=== PATIENT | male | born 1960 | race Caucasian/White ===

== ENCOUNTER 2018-06-03 05:41 | Inpatient (IN) | payer OTHER ==
[2018-05-19 14:08] VITALS: Ht 188 cm; Wt 111.8 kg
[~2018-06-03] VITALS: Ht 188 cm; Wt 111.8 kg
[2018-06-03] VITALS (23 sets, daily range): BP systolic 111–149; BP diastolic 71–88; PULSE 71–95; RESP 12–23
[~2018-06-03 05:41] MED LIST: ATOR40TA68 PO; BUDE3CAP PO; CYCL10TA7 PO; GABA300C16 PO; GEMF600T PO; HYDR-4011 PO; HYOS0.1274 PO; MULTI PO; ONDA4TAB8 PO; PANT40TA3 PO; QUIN40TA31 PO; USTE90DI SQ
[2018-06-03] MEDS ORDERED: CEFAZOLIN 2 GM/50 ML (PMX) 50 ML IVPB SCH (06:00)
[2018-06-03] MEDS ORDERED: LACTATED RINGER'S 1,000 ML IV* SCH (06:00)
[2018-06-03] MEDS ORDERED: CEFAZOLIN 1 GM INJ ONE (07:28)
[2018-06-03] MEDS ORDERED: THROMBIN (BOVINE) 5,000 UNIT VIAL TP ONE ×2 (07:28→12:55)
[2018-06-03] MEDS ORDERED: GELATIN SIZE 100 SPONGE ONE ×2 (07:28→11:39)
[2018-06-03] MEDS ORDERED: BUPIVACAINE 0.5%/EPI (SDV) 30 ML INJ ONE (07:28)
[2018-06-03] MEDS ORDERED: HEPARIN 1000 UNITS/ML 10 ML INJ ONE (07:29)
--- NOTE | 2018-06-03 07:32 | PREAC ---
Date/Time of Note Date/Time of Note DATE: 06/03/18 TIME: 07:30 Anesthesia Eval and Record Evaluation Time Pre-Procedure Interview DATE: 06/03/18 TIME: 07:30 Age 58 Sex male NPO: 8 hrs Preoperative diagnosis Severe degenerative disc disease L4-5, severe bilateral foraminal stenosis with radiculopathy Planned procedure Anterior lumbar interbody fusion with graft, posterior L4-5 instrumented fusion, possible L4-5 decompression Past Medical History Past Medical History: Includes Cardio: HTN, Dyslipidemia GI: Obesity, Other (crohn's disease, irritable bowel syndrome) Surgery & Anesthesia Issues No known issue Meds Anticoagulation: No Beta Terrie within 24 hr: No Reason Beta Terrie not given: Pt. not on B-Terrie Reported Medications Ustekinumab (Stelara) 90 Mg/1 Ml Disp.syrin, 90 MG SQ EVERY 6 WEEKS 05/19/18 Cyclobenzaprine Hcl* (Cyclobenzaprine Hcl*) 10 Mg Tablet, 10 MG PO BID PRN for MUSCLE SPASMS, #60 TAB 05/19/18 Hydrocodone/Acetaminophen ([place] 5-325 Tablet) 1 Each Tablet, 1 EACH PO TID PRN for PAIN, TAB 05/19/18 Hyoscyamine Sulfate* (Levsin*) 0.125 Mg Tablet, 0.125 MG PO Q4H PRN for MUSCLE SPASMS, TAB 05/19/18 Budesonide EC* (Budesonide EC*) 3 Mg Capdr...er, 3 MG PO DAILY, TAB 05/19/18 Pantoprazole* (Protonix*) 40 Mg Tablet.dr, 40 MG PO DAILY, TAB 05/19/18 Multivitamins* (Theragran*) 1 Tab Tab, 1 TAB PO DAILY, TAB 05/19/18 Gabapentin* (Gabapentin*) 300 Mg Capsule, 300 MG PO TID, #90 CAP 05/19/18 Ondansetron Hcl* (Zofran*) 4 Mg Tablet, 4 MG PO TID PRN for NAUSEA AND OR VOMITING, TAB 05/19/18 Quinapril Hcl (Quinapril Hcl) 40 Mg Tablet, 40 MG PO DAILY, #30 TAB 05/19/18 Gemfibrozil* (Lopid*) 600 Mg Tablet, 600 MG PO BID, TAB 05/19/18 Atorvastatin* (Atorvastatin*) 40 Mg Tablet, 40 MG PO QHS, #30 TAB 05/19/18 Current Medications Cefazolin Sodium/ Dextrose 50 ml @ 100 mls/hr PREOP IVPB ; Start 06/03/18 at 06:00; Stop 06/03/18 at 16:00 Lactated Ringer's 1,000 ml @ 0 mls/hr Q0M IV* ; Start 06/03/18 at 06:00; Stop 06/03/18 at 23:00 Meds reviewed: Yes Allergies Coded Allergies: No Known Allergy (Unverified , 05/19/18) Allergies Reviewed: Yes Labs/Studies Labs Reviewed: Reviewed by anesthesiologist Blood Bank Test 06/03/18 05:55 06/03/18 06:19 Blood Product Summary Counts Antibody Screen NEGATIVE Blood Type A POSITIVE test: N/A Pre-procedure Exam Last vitals Vital Signs Date Temp Pulse Resp B/P (MAP) Pulse Ox O2 O2 Flow FiO2 Time Delivery Rate 06/03/18 97.6 71 18 111/75 98 Room Air 06:43 (87) Airway: Adequate mouth opening Mallampati: Mallampati II Teeth: Abnormal (Upper partial denture) Lung: Normal Heart: Normal ASA Physical Status ASA physical status: 3 Emergency: None Planned Anesthetic General/MAC: ETT, A Line Planned Pain Management Parenteral pain med Pre-operative Attestations Prior to commencing anesthesia and surgery, the patient was re-evaluated, there was verification of: *The patient's identity *The results of appropriate recent lab work and preoperative vital signs *The above evaluation not changing prior to induction *Anesthetic plan, risk benefits, alternative and complications discussed with patient/family; questions answered; patient/family understands, accepts and wishes to proceed. JORDEN WU MD Jun 03, 2018 07:32
--- NOTE | 2018-06-03 07:33 | HPN ---
Date/Time of Note Date/Time of Note DATE: 06/03/18 TIME: 07:33 Interval H&P Admission Note Pt. seen H&P reviewed: No system changes VINCENT BALDERAS MD Jun 03, 2018 07:33
[2018-06-03] MEDS ORDERED: LIDOCAINE 2% (SDV) 5 ML INJ ONE (07:52)
[2018-06-03] MEDS ORDERED: GLYCOPYRROLATE 0.4 MG INJ ONE ×3 (07:52→08:44)
[2018-06-03] MEDS ORDERED: SUCCINYLCHOLINE CHLORIDE 100 MG/5 ML SYG IV ONE (07:52)
[2018-06-03] MEDS ORDERED: NEOSTIGMINE 3 MG/3 ML SYRINGE ONE ×2 (07:52→08:44)
[2018-06-03] MEDS ORDERED: MEPERIDINE 100 MG INJ ONE (07:52)
[2018-06-03] MEDS ORDERED: ROCURONIUM 50 MG INJ ONE ×2 (07:52→08:44)
[2018-06-03] MEDS ORDERED: PROPOFOL 20 ML ONE (07:52)
[2018-06-03] MEDS ORDERED: ATROPINE 1 MG/10 ML SYRINGE ONE (09:19)
[2018-06-03] MEDS ORDERED: EPHEDrine 50 MG INJ ONE (10:24)
--- NOTE | 2018-06-03 14:47 | OPR ---
Date/Time of Note Date/Time of Note DATE: 06/03/18 TIME: 14:41 Operative Report Free Text/Dictation DATE OF OPERATION: 06/03/2018 PREOPERATIVE DIAGNOSES: 1. L4-5 severe degenerative disk disease with spinal stenosis and radiculopathy 2. Obesity (BMI 31.6 kg/m2) POSTOPERATIVE DIAGNOSES: 1. L4-5 severe degenerative disk disease with spinal stenosis and radiculopathy 2. Obesity (BMI 31.6 kg/m2) OPERATION PERFORMED: 1. Anterior lumbar interbody fusion L4-5 2. Placement of anterior interbody device L4-5 3. Placement of posterior spinal segmental instrumentation L4-5 4. Posterior spinal fusion L4-5 5.Bilateral L4-5 laminectomy, medial facetectomy and foraminotomy 6. Interpretation of neuromonitoring SURGEON: Vincent Balderas MD Vascular surgeon: Bird Euceda MD ANESTHESIA: General endotracheal ESTIMATED BLOOD LOSS: 250 cc SURGICAL INDICATION: The patient is a 58 year-old male who presents with an increasing history of back and leg pain. The patient was found to have severe degenerative disk disease at L4-5 with associated stenosis. The patient had failed conservative treatments. Risks, benefits and alternatives to an anterior and posterior spinal fusion with instrumentation and decompression were explained to the patient including but not exclusive of bleeding, infection, visceral injury, nerve injury, nonunion, instrumentation failure, lack of symptom relief, myocardial infarction, stroke, and pulmonary embolism, and they wished to proceed. DESCRIPTION OF TECHNIQUE: The patient was identified in the preoperative area and taken to the operating room. Rapid induction of general endotracheal anesthesia was performed. Patient was given 2 grams of IV ancef for prophylaxis. The patient was positioned in the supine position on the operative table. All bony prominences were well padded. The patient's abdomen and left flank were prepped and draped in the usual sterile fashion. An oblique skin incision was made across the L4-L5 level by our vascular surgeon Dr. Euceda. Please note that given the patient's obesity with BMI of 30 additional time (1 hour) was taken for exposure and placement of the anterior interbody as well as posterior decompression and instrumentation. After the exposure was completed, I performed a L4-L5 diskectomy. The disc was incised using a sharp 15 mm blade. I then used a smith elevator to loosen the disk material from the superior and inferior endplates. I then used a rongeur to remove the disc material and a series of curved and straight curettes to evacuate the disc space. I also used a series of pituitaries and kerrisons to ensure appropriate end plate preparation. Attention was placed to ensure removal of disk material to bleeding endplates without violation of the endplate. I then used the trial rasps to prepare and size the disc space and was able to place a 11 mm trial allograft FRA spacer with 8 degrees of lordosis. To ensure appropriate sizing of the inplant, I checked for fit and placement under C arm control and I felt the 8 degree lordotic 8 mm cage gained good lordosis and worship of disc height and was an appropriate fit. I then inserted the 11mm RFA cage after the trail. This cage was filled with a small BMP and morselized bone allograft. A butress screw with a washer was then placed in the L4 vertebral body using the guide under fluoroscopy . Additional morselized allograft was placed around and anterior to the cage in the disc space. 2mL of tisseal was also used prior to placement of the cage in order to reduce the risk of BMP radiculitis. The wound was then irrigated. X-rays were taken to check for instruments. The wound was then closed by our vascular access surgeon in standard technique. The posterior rectus sheath and anterior rectus sheath were both repaired. Sterile dressing was then placed. Attention was then turned toward the decompression and instrumented fusion procedure from L4-L5. At this point, the patient was flipped to the prone position with all bony prominences well-padded on a Omari table. We ensured that the antibiotics were appropriately redosed. The lumbar spine was then prepped and draped in sterile fashion. A timeout was once again performed. Using a spinal needle and intraoperative fluoroscopy, the L4-5 level was clearly identified. The skin was injected using half percent Marcaine with epinephrine. Longitudinal midline incision was then created using a 10 blade. Further dissection through soft tissue was performed using electrocautery down to the spinous processes bilaterally. Dissection was taken down the bilateral lamina and over the facet joint capsule. A self-retaining retractor was applied. Again, intraoperative fluoroscopy confirmed the level. A rongeur was used to remove a portion of the L4 and L5 spinous processes and the interspinous ligament. We identified the interlaminar window. The microscope was brought into use for microdissection. The high-speed bur was used to thin the L4 lamina and a portion of the medial L4-5 facet bilaterally. . Kerrison rongeurs were then used to resect a the lamina, and a portion of the medial facet and the bone overlying the foramen bilaterally. Ligamentum flavum was also resected using the Kerrison rongeurs. Care was taken to protect the thecal sac throughout the decompressive procedure. Palpation with a ball-tip probe did not reveal any further stenosis in the central, subarticular, or foraminal areas. The bilateral L5 and L4 pedicles were palpated using a ella to ensure a pedicle to pedicle decompression. The exiting L4 nerve root and traversing L5 nerve roots were both directly visualized and noted to be decompressed. The cephalad and caudad extent of the decompression were also confirmed using ball-tip probes and intraoperative fluoroscopy. We then focused on placement of posterior spinal segmental instrumentation from L4-5. Using intraoperative fluoroscopy, the pedicles were identified at each level. Care was taken to alter the fluoroscopic view to have a true AP and lateral at each level. Jamshidi needles were then passed down to the lateral aspect of the pedicles through stab incisions. The Jamshidi needles were malleted into the pedicles. These were also performed under EMG guidance. Care was taken to ensure that the needles did not pass the medial wall of the pedicle on the AP view prior to checking that the needle was past the posterior wall of the vertebral body. The needles were then malleted further into the vertebral bodies themselves. Guidewires were passed through the needles and the needles were removed. Taps were applied over the guidewires. Screws were then placed bilaterally into the vertebral bodies. AP and lateral views confirmed appropriate placement of the instrumentation. Attention was turned toward the posterior spinal fusion from L4-5. Rods were selected of the appropriate length and placed into the screw heads. End caps were applied and final tightening was performed using a xrdfuz-zbmiykx-ygepyw wrench. The exposed facet joints were decorticated using a bur. A small remaining amount of allograft was placed into the facet joints to facilitate the posterior fusion. The wound was irrigated copiously using normal saline. The fascia was then closed using 1 Vicryl in interrupted fashion. Subcutaneous tissue was closed using 2-0 Vicryl in interrupted fashion. [facility]was also placed in the wound. Skin was closed using a running 4-0 Monocryl stitch. The wounds were dressed using Dermabond, sterile gauze and Tegaderm. The patient was returned to the supine position. The patient was extubated immediately postoperatively and taken to the recovery room in stable condition. Patient tolerated the procedure well and left the operating room in stable condition. Implants used: 1.Depuy/ Synthes FRA 11mm height/ 8 degree lordotic cage at L4-5 2. Extra-Small BMP with 30 cc of cancellous bone chips 3. 6.5/25 mm buttress screws with washer 1 4. NuVasive 6.545 mm screws at L4 x2 6.NuVasive 6.545 mm screws at L5 2 7. 45 mm Luciano x 2 Procedure Date: Jun 03, 2018 Preoperative Diagnosis 1. L4-5 severe degenerative disk disease with spinal stenosis and radiculopathy 2. Obesity (BMI 31.6 kg/m2) Postoperative Diagnosis 1. L4-5 severe degenerative disk disease with spinal stenosis and radiculopathy 2. Obesity (BMI 31.6 kg/m2) Operation/Procedure Performed 1. Anterior lumbar interbody fusion L4-5 2. Placement of anterior interbody device L4-5 3. Placement of posterior spinal segmental instrumentation L4-5 4. Posterior spinal fusion L4-5 5.Bilateral L4-5 laminectomy, medial facetectomy and foraminotomy 6. Interpretation of neuromonitoring Surgeon see signature line Peanut Separator Bird Euceda MD Anesthesia Type: general Estimated Blood Loss: 250 - 300 ml's Transfusion none Specimen none Grafts/Implants Implants used: 1.Depuy/ Synthes FRA 11mm height/ 8 degree lordotic cage at L4-5 2. Extra-Small BMP with 30 cc of cancellous bone chips 3. 6.5/25 mm buttress screws with washer 1 4. NuVasive 6.545 mm screws at L4 x2 6.NuVasive 6.545 mm screws at L5 2 7. 45 mm Luciano x 2 Complications none Pt Condition Post Procedure: stable Disposition: PACU Procedure Description DESCRIPTION OF TECHNIQUE: The patient was identified in the preoperative area and taken to the operating room. Rapid induction of general endotracheal anesthesia was performed. Patient was given 2 grams of IV ancef for prophylaxis. The patient was positioned in the supine position on the operative table. All bony prominences were well padded. The patient's abdomen and left flank were prepped and draped in the usual sterile fashion. An oblique skin incision was made across the L4-L5 level by our vascular surgeon Dr. Euceda. Please note that given the patient's obesity with BMI of 30 additional time (1 hour) was taken for exposure and placement of the anterior interbody as well as posterior decompression and instrumentation. After the exposure was completed, I performed a L4-L5 diskectomy. The disc was incised using a sharp 15 mm blade. I then used a smith elevator to loosen the disk material from the superior and inferior endplates. I then used a rongeur to remove the disc material and a series of curved and straight curettes to evacuate the disc space. I also used a series of pituitaries and kerrisons to ensure appropriate end plate preparation. Attention was placed to ensure removal of disk material to bleeding endplates without violation of the endplate. I then used the trial rasps to prepare and size the disc space and was able to place a 11 mm trial allograft FRA spacer with 8 degrees of lordosis. To ensure appropriate sizing of the inplant, I checked for fit and placement under C arm control and I felt the 8 degree lordotic 8 mm cage gained good lordosis and worship of disc height and was an appropriate fit. I then inserted the 11mm RFA cage after the trail. This cage was filled with a small BMP and morselized bone allograft. A butress screw with a washer was then placed in the L4 vertebral body using the guide under fluoroscopy . Additional morselized allograft was placed around and anterior to the cage in the disc space. 2mL of tisseal was also used prior to placement of the cage in order to reduce the risk of BMP radiculitis. The wound was then irrigated. X-rays were taken to check for instruments. The wound was then closed by our vascular access surgeon in standard technique. The posterior rectus sheath and anterior rectus sheath were both repaired. Sterile dressing was then placed. Attention was then turned toward the decompression and instrumented fusion procedure from L4-L5. At this point, the patient was flipped to the prone position with all bony prominences well-padded on a Omari table. We ensured that the antibiotics were appropriately redosed. The lumbar spine was then prepped and draped in sterile fashion. A timeout was once again performed. Using a spinal needle and intraoperative fluoroscopy, the L4-5 level was clearly identified. The skin was injected using half percent Marcaine with epinephrine. Longitudinal midline incision was then created using a 10 blade. Further dissection through soft tissue was performed using electrocautery down to the spinous processes bilaterally. Dissection was taken down the bilateral lamina and over the facet joint capsule. A self-retaining retractor was applied. Again, intraoperative fluoroscopy confirmed the level. A rongeur was used to remove a portion of the L4 and L5 spinous processes and the interspinous ligament. We identified the interlaminar window. The microscope was brought into use for microdissection. The high-speed bur was used to thin the L4 lamina and a portion of the medial L4-5 facet bilaterally. . Kerrison rongeurs were then used to resect a the lamina, and a portion of the medial facet and the bone overlying the foramen bilaterally. Ligamentum flavum was also resected using the Kerrison rongeurs. Care was taken to protect the thecal sac throughout the decompressive procedure. Palpation with a ball-tip probe did not reveal any further stenosis in the central, subarticular, or foraminal areas. The bilateral L5 and L4 pedicles were palpated using a ella to ensure a pedicle to pedicle decompress ion. The exiting L4 nerve root and traversing L5 nerve roots were both directly visualized and noted to be decompressed. The cephalad and caudad extent of the decompression were also confirmed using ball-tip probes and intraoperative fluoroscopy. We then focused on placement of posterior spinal segmental instrumentation from L4-5. Using intraoperative fluoroscopy, the pedicles were identified at each level. Care was taken to alter the fluoroscopic view to have a true AP and lateral at each level. Jamshidi needles were then passed down to the lateral aspect of the pedicles through stab incisions. The Jamshidi needles were malleted into the pedicles. These were also performed under EMG guidance. Care was taken to ensure that the needles did not pass the medial wall of the pedicle on the AP view prior to checking that the needle was past the posterior wall of the vertebral body. The needles were then malleted further into the vertebral bodies themselves. Guidewires were passed through the needles and the needles were removed. Taps were applied over the guidewires. Screws were then placed bilaterally into the vertebral bodies. AP and lateral views confirmed appropriate placement of the instrumentation. Attention was turned toward the posterior spinal fusion from L4-5. Rods were selected of the appropriate length and placed into the screw heads. End caps were applied and final tightening was performed using a ormumi-qgcpxra-daxwem wrench. The exposed facet joints were decorticated using a bur. A small remaining amount of allograft was placed into the facet joints to facilitate the posterior fusion. The wound was irrigated copiously using normal saline. The fascia was then closed using 1 Vicryl in interrupted fashion. Subcutaneous tissue was closed using 2-0 Vicryl in interrupted fashion. A drain (medium Hemovac)was also placed in the wound. Skin was closed using a running 4-0 Monocryl stitch. The wounds were dressed using Dermabond, sterile gauze and Tegaderm. The patient was returned to the supine position. The patient was extubated immediately postoperatively and taken to the recovery room in stable condition. Patient tolerated the procedure well and left the operating room in stable condition. Implants used: 1.Depuy/ Synthes FRA 11mm height/ 8 degree lordotic cage at L4-5 2. Extra-Small BMP with 30 cc of cancellous bone chips 3. 6.5/25 mm buttress screws with washer 1 4. NuVasive 6.545 mm screws at L4 x2 6.NuVasive 6.545 mm screws at L5 2 7. 45 mm Luciano x 2 VINCENT BALDERAS MD Jun 03, 2018 14:47
[2018-06-03] MEDS ORDERED: ONDANSETRON 4 MG INJ ONE (14:56)
[2018-06-03] MEDS ORDERED: METOCLOPRAMIDE 10 MG INJ ONE (14:56)
[2018-06-03] MEDS ORDERED: NACL 0.9% 3 ML SYG IV SCH (15:00)
[2018-06-03] MEDS ORDERED: NALOXONE (0.4 MG/ML) INJ IV PRN (15:00)
[2018-06-03] MEDS ORDERED: HYDROCODONE/APAP (5/325) TAB PO PRN ×2 (15:00)
[2018-06-03] MEDS ORDERED: ACETAMINOPHEN 325 MG TAB PO PRN (15:00)
[2018-06-03] MEDS ORDERED: HYDROmorphONE 1 MG/5 ML IV SYRINGE IV ONE (15:20)
[2018-06-03] MEDS ORDERED: FENTAnyl 50 MCG/ML VIAL ONE (15:20)
[2018-06-03] MEDS: HYDROmorphONE 0.2 MG/ML PCA IV SCH ×2 (15:28→21:24)
[2018-06-03] MEDS ORDERED: hydrALAzine 20 MG INJ IV PRN (15:30)
[2018-06-03] MEDS ORDERED: MEPERIDINE 25 MG INJ IV PRN (15:30)
[2018-06-03] MEDS ORDERED: LABETALOL HCL 20MG INJ IV PRN (15:30)
[2018-06-03] MEDS ORDERED: EPHEDrine SULFATE 50 MG/5 ML SYG IV PRN (15:30)
[2018-06-03] MEDS ORDERED: HYDROmorphONE 1 MG/5 ML IV SYRINGE IV PRN ×3 (15:30)
[2018-06-03] MEDS ORDERED: DIPHENHYDRAMINE 50 MG INJ IV PRN (15:30)
[2018-06-03] MEDS ORDERED: OXYCODONE/ACETAMINOPHEN (5/325) TAB PO PRN ×2 (15:30)
[2018-06-03] MEDS ORDERED: MIDAZOLAM 1 MG/ML 2 ML INJ IV PRN (15:30)
[2018-06-03] MEDS ORDERED: ONDANSETRON 4 MG INJ IV PRN (15:30)
[2018-06-03] MEDS ORDERED: FENTAnyl 50 MCG/ML VIAL IV PRN ×3 (15:30)
[2018-06-03] MEDS ORDERED: METOCLOPRAMIDE 10 MG INJ IV PRN (15:30)
--- NOTE | 2018-06-03 16:36 | PAC ---
Date/Time of Note Date/Time of Note DATE: 06/03/18 TIME: 16:35 Post-Anesthesia Notes Post-Anesthesia Note Last documented vital signs Vital Signs Date Temp Pulse Resp B/P (MAP) Pulse Ox O2 O2 Flow FiO2 Time Delivery Rate 06/03/18 16 16:01 06/03/18 Simple 10.0 15:50 Mask 06/03/18 88 125/80 100 15:39 (95) 06/03/18 98.9 15:19 Activity: WNL Respiratory function: WNL Cardiovascular function: WNL Mental status: Baseline Pain reasonably controlled: Yes Hydration appropriate: Yes Nausea/Vomiting absent: Yes Comments BT: 98.6 JORDEN WU MD Jun 03, 2018 16:36
[2018-06-03] MEDS: DEXTROSE 5%-0.45% NACL 1,000 ML IV SCH (17:49)
[2018-06-03] MEDS: CEFAZOLIN 1 GM/50 ML (PMX) 50 ML IVPB SCH ×2 (17:49→23:33)
--- NOTE | 2018-06-03 19:29 | CONS ---
DATE OF ADMISSION: 06/03/2018 DATE OF CONSULTATION: 06/03/2018 TYPE OF CONSULTATION: Postop medical. Thank you very much for allowing me to evaluate this 58-year-old male who just underwent lumbar back surgery. HISTORICAL EVENTS: As you well know, this patient suffered an injury while at work in 10/2017. Rose use of the subsequent evidence of back pain, he was evaluated and you detected evidence of bilateral foraminal stenosis and subarticular stenosis involving L4 to L5. He did undergo epidural injections and because of no significant relief subsequent to the same, elected to proceed with surgery. In rec overy room, he is comfortable without cough, wheezing, shortness of breath, nausea, vomiting, abdomin al or chest pain. PAST MEDICAL HISTORY: As obtained from the medical record reveals hyperlipidemia, hypertension, dysp epsia without history of coronary disease or diabetes, colitis. MEDICATIONS: Prior to admission include: 1. Atorvastatin 40. 2. Budesonide 3 mg per day. 3. Gabapentin 300 mg per day. 4. Lopid 600 mg per day. 5. [place] 5/325 q.6 p.r.n. 6. Multi-Lance. 7. Levsin as needed. 8. Protonix 40. 9. Quinapril. 10. Stelara 90 mg per day. ALLERGIES: NONE. FAMILY HISTORY: Unremarkable. PHYSICAL EXAMINATION: VITAL SIGNS: BP 128/78, pulse 72, respirations were 18. He was afebrile. HEENT: Eyes: Extraocular muscles were full. Nose, mouth and throat were normal. NECK: Supple. There was no jugular venous distention, thyroid enlargement or adenopathy. LUNGS: Clear. HEART: Rhythm regular. No murmur. No third or fourth sound. ABDOMEN: Nontender. Liver and spleen were not palpable. No mass or tenderness was noted. EXTREMITIES: No edema. Calves were nontender. NEUROLOGIC: No lateralizing motor weakness. IMPRESSION: 1. Stable postop lumbar back surgery. 2. History of hypertension. We will continue blood pressure meds. 3. History of hyperlipidemia. We will continue statin and triglyceride-lowering therapy. 4. History of colitis. We will continue budesonide. 5. We will evaluate daily for signs and symptoms of thromboembolic disease. Dictated By: FAINA TURPIN/RAMON Conf#: [id number] DID#: [id number] CC: VINCENT BALDERAS MD;*End*
--- NOTE | 2018-06-03 20:35 | OPR ---
DATE OF OPERATION: PREOPERATIVE DIAGNOSIS: Degenerative disk disease, lumbosacral spine. POSTOPERATIVE DIAGNOSIS: Degenerative disk disease, lumbosacral spine. PROCEDURE: Anterior retroperitoneal exposure interbody fusion at L4 to L5. SURGEON: Eduin Polk MD TEST BORER HELPER: Vincent Balderas MD ESTIMATED BLOOD LOSS: 50 mL. ANESTHESIA: General. INFORMED CONSENT: Risks, benefits, complications, alternative therapies, high-risk nature of the ope ration were fully explained to the patient and the family. Consent was obtained. Risks and benefits that were explained to the patient included but not limited to bleeding, infection, damage to bowel, damage to ureter, wound infection, wound dehiscence, DVT, PE, loss of limb, loss of life, high-risk nature of the operation were fully explained to the patient and the family. All questions were answe red. OPERATIVE TECHNIQUE: I made a 10 cm incision in the left lower quadrant below the umbilicus in a hor izontal fashion. Incision was taken down to the subcutaneous tissue which was then opened using elec trocautery. Left anterior rectus sheath was opened in the direction of the wound. Posterior rectus sheath was incised superiorly about 3 cm. Bookwalter retractor was placed retracting the bowel charisma nts to the right, left rectus muscle to the left. I dissected the left common iliac artery and vein, external iliac artery and vein. I ligated left iliolumbar veins using 2-0 silk sutures and titanium clips and I also ligated the lowest segmental vessels on the left side using titanium clips. Exposu re for L4 to L5 was obtained by retracting the left common iliac artery and vein, external iliac giselle ry and vein, vena cava and aorta to the right. We proceeded with diskectomy and placement of the new cage. Please refer to Dr. Balderas's dictation for the details of that operation. After all x-ray s were satisfactorily read by Dr. Balderas, needle counts and sponge count was correct. The wound w as irrigated using antibiotic solution. Posterior rectus sheath was closed using 0 Vicryl suture in running fashion. Anterior rectus sheath was closed using #1 Vicryl suture in running fashion with in terrupted sutures in the middle. The wound was irrigated again and closed in 2 layers of 2-0 Vicryl suture for the subcutaneous and Steri-Strips for the skin. The patient tolerated procedure well. Dictated By: EDUIN POLK MD FM/NTS Conf#: [id number] DID#: [id number] CC: VINCENT BALDERAS MD; FAINA CALI MD;*End*
[2018-06-03] MEDS: GEMFIBROZIL 600 MG TAB PO SCH (21:00)
[2018-06-03] MEDS: ACETAMINOPHEN 1000MG/100ML IV 100 ML IVPB SCH (21:07)
[2018-06-03] MEDS: ATORVASTATIN 40 MG TAB PO SCH (21:09)
[2018-06-03] MEDS: METHOCARBAMOL 500 MG TAB PO SCH (21:09)
[2018-06-04 00:53] VITALS: BP 141/78; PULSE 92; RESP 20
[2018-06-04] MEDS: DEXTROSE 5%-0.45% NACL 1,000 ML IV SCH ×3 (04:10→20:47)
[2018-06-04] MEDS: METHOCARBAMOL 500 MG TAB PO SCH ×3 (04:11→22:55)
[2018-06-04] MEDS: HYDROmorphONE 0.2 MG/ML PCA IV SCH ×2 (04:20→11:10)
[2018-06-04] MEDS: ACETAMINOPHEN 1000MG/100ML IV 100 ML IVPB SCH ×2 (05:26→14:41)
[2018-06-04] MEDS: ONDANSETRON 4 MG INJ IV PRN ×2 (05:26→14:32)
[2018-06-04] MEDS: CEFAZOLIN 1 GM/50 ML (PMX) 50 ML IVPB SCH ×2 (05:41→15:08)
[2018-06-04 07:31] VITALS: BP 162/91; PULSE 94; RESP 18
[2018-06-04] MEDS: DOCUSATE SODIUM 100 MG CAP PO SCH ×2 (08:53→20:42)
[2018-06-04] MEDS: BENAZEPRIL 20 MG TAB PO SCH (08:56)
[2018-06-04] MEDS: PANTOPRAZOLE (EC) 40 MG TAB PO SCH (08:56)
--- NOTE | 2018-06-04 10:16 | CONS ---
Consultation Date/Type/Reason Admit Date/Time Jun 03, 2018 at 05:41 Initial Consult Date Date/Time of Note DATE: 06/04/18 TIME: 10:11 24 HR Interval Summary Free Text/Dictation S: 58 yo M POD#1 s/p L4-5 ALIF w/ post decompression and instrumented fusion. No acute events over night. Pain controlled w/ CLINICAL PROJECT COORDINATOR. Tolerating clear diet. O: Vital Signs Date Temp Pulse Resp B/P (MAP) Pulse Ox O2 O2 Flow FiO2 Time Delivery Rate 06/04/18 98.4 94 18 162/91 97 07:31 (114) 06/04/18 98.4 06:07 06/04/18 18 05:38 06/04/18 98.8 05:26 Drain Output: 30 mL Gen: AAOx3, NAD Abdomen: mild distension, No TTP Spine: 4/5 B/L HF/KE/TA/GS/EHL, +SILT L3-S1, dressings C/D/I A/P:58 yo M POD#1 s/p L4-5 ALIF w/ post decompression and instrumented fusion. 1. Start regular diet once passing gas 2. D/C CLINICAL PROJECT COORDINATOR tomorrow 3. D/C [place] tomorrow once cleared by PT 4. appreciate med recs Exam/Review of Systems Exam Vitals Vital Signs Date Temp Pulse Resp B/P (MAP) Pulse Ox O2 O2 Flow FiO2 Time Delivery Rate 06/04/18 98.4 94 18 162/91 97 07:31 (114) 06/04/18 Nasal 00:53 Cannula 06/03/18 3.0 21:34 Intake and Output 06/03/18 06/03/18 06/04/18 1515:00 23:00 07:00 IntakeIntake Total 3300 ml 2350 ml OutputOutput Total 200 ml 752 ml 1120 ml BalanceBalance -200 ml 2548 ml 1230 ml Results Result Diagram: 06/04/18 0435 06/04/18 0435 Results 24hrs Laboratory Tests Test 06/04/18 04:35 06/04/18 06:43 Hemoglobin 13.5 L Hematocrit 40.1 L Sodium Level 136 Potassium Level 3.3 L Chloride Level 95 L Carbon Dioxide Level 29 Anion Gap 12 Blood Urea Nitrogen 6 L Creatinine 0.61 Est Glomerular Filtrat Rate mL/min > 60 Glucose Level 149 Calcium Level 9.0 Lab Scanned Report REFERENCE LAB Medications Medication Current Medications Dextrose/Sodium Chloride 1,000 ml @ 100 mls/hr Q10H IV Last administered on 06/04/18at 04:10; Admin Dose 100 MLS/HR; Start 06/03/18 at 14:47 Acetaminophen/ Hydrocodone Bitart ([place] (5/325)) 1 tab Q4H PRN PO .PAIN 1-5; Start 06/03/18 at 15:00 Acetaminophen/ Hydrocodone Bitart ([place] (5/325)) 2 tab Q4H PRN PO .PAIN 6-10; Start 06/03/18 at 15:00 Cefazolin Sodium 50 ml @ 100 mls/hr Q6 IVPB Last administered on 06/04/18at 05:41; Admin Dose 100 MLS/HR; Start 06/03/18 at 18:00; Stop 06/04/18 at 12:29 Prochlorperazine (Compazine) 10 mg Q4H PRN PO NAUSEA/VOMITING; Start 06/03/18 at 15:00 Ondansetron HCl (Zofran Inj) 4 mg Q6H PRN IV NAUSEA/VOMITING Last administered on 06/04/18at 05:26; Admin Dose 4 MG; Start 06/03/18 at 15:00 Al Hydrox/Mg Hydrox/Simethicone (Mag-Al Plus) 15 ml Q4H PRN PO .CONSTIPATION; Start 06/03/18 at 15:00 Docusate Sodium (Colace) 100 mg BID PO Last administered on 06/04/18at 08:53; Admin Dose 100 MG; Start 06/04/18 at 09:00 Acetaminophen (Tylenol Tab) 650 mg Q4H PRN PO TEMP GREATER THAN 101F OR LORENZ; Start 06/03/18 at 15:00 IV Flush (NS 3 ml) 3 ml PER PROTOCOL IV ; Start 06/03/18 at 15:00 Hydromorphone HCl (Dilaudid CLINICAL PROJECT COORDINATOR) continuous dose: 0.2 dem... Q4PCA IV Last administered on 06/04/18at 04:20; Admin Dose 6 MG; Start 06/03/18 at 15:00 Naloxone HCl (Narcan) 0.2 mg Q2M PRN IV RR 8 BREATHS/MIN OR LESS; Start 05/07 11/24 at 15:00 Atorvastatin Calcium (Lipitor) 40 mg QHS PO Last administered on 06/03/18at 21:09; Admin Dose 40 MG; Start 06/03/18 at 21:00 Budesonide (Entocort Ec) 3 mg DAILY PO ; Start 06/04/18 at 09:00 Gemfibrozil (Lopid) 600 mg BID PO ; Start 06/03/18 at 21:00 Pantoprazole (Protonix Tab) 40 mg DAILY PO Last administered on 06/04/18at 08:56; Admin Dose 40 MG; Start 06/04/18 at 09:00 Benazepril HCl (Lotensin) 40 mg DAILY PO Last administered on 06/04/18at 08:56; Admin Dose 40 MG; Start 06/04/18 at 09:00 Methocarbamol (Robaxin) 500 mg Q8 PO Last administered on 06/04/18at 04:11; Admin Dose 500 MG; Start 06/03/18 at 22:00 Acetaminophen 100 ml @ 400 mls/hr Q8 IVPB Last administered on 06/04/18at 05:26; Admin Dose 400 MLS/HR; Start 06/03/18 at 22:00; Stop 06/04/18 at 14:14 VINCENT BALDERAS MD Jun 04, 2018 10:16
[2018-06-04 14:23] VITALS: BP 165/89; PULSE 101; RESP 18
--- NOTE | 2018-06-04 14:36 | CONS ---
Consult Date/Type/Reason Admit Date/Time Jun 03, 2018 at 05:41 Initial Consult Date 06/03/2018 Type of Consultation: Internal Medicine Reason for Consultation Management of HTN, HLD, GERD, colitis for periop patient Requesting Provider: VINCENT BALDERAS MD Date/Time of Note DATE: 06/04/18 TIME: 14:31 Subjective Patient has not bee passing gas. Endorses moderate pain but trying to avoid using SENIOR FACILITIES MANAGER as it caused nausea. He has had N/V. Has pain at surgical sites. Denies f/c/d/c/cp/sob/cough. Objective Vitals Vital Signs Date Temp Pulse Resp B/P (MAP) Pulse Ox O2 O2 Flow FiO2 Time Delivery Rate 06/04/18 98.4 101 18 165/89 92 14:23 (114) 06/04/18 Nasal 3.0 08:00 Cannula Intake and Output 06/03/18 06/03/18 06/04/18 1515:00 23:00 07:00 IntakeIntake Total 3300 ml 2350 ml OutputOutput Total 200 ml 752 ml 1120 ml BalanceBalance -200 ml 2548 ml 1230 ml Exam Gen-nad HEENT-op clear,MMM CV-RRR,nml s1/s2. No m/r/g Abd-soft,ND, +BS, tender around surgical site to moderate palpation Ext-no c/c/e. seen to move all extremities Results/Medications Result Diagram: 06/04/185 06/04/18434 Results 24 hrs Laboratory Tests Test 06/04/18 04:35 06/04/18 06:43 Hemoglobin 13.5 L Hematocrit 40.1 L Sodium Level 136 Potassium Level 3.3 L Chloride Level 95 L Carbon Dioxide Level 29 Anion Gap 12 Blood Urea Nitrogen 6 L Creatinine 0.61 Est Glomerular Filtrat Rate mL/min > 60 Glucose Level 149 Calcium Level 9.0 Lab Scanned Report REFERENCE LAB Home Meds Reported Medications Ustekinumab (Stelara) 90 Mg/1 Ml Disp.syrin, 90 MG SQ EVERY 6 WEEKS 05/19/18 Cyclobenzaprine Hcl* (Cyclobenzaprine Hcl*) 10 Mg Tablet, 10 MG PO BID PRN for MUSCLE SPASMS, #60 TAB 05/19/18 Hydrocodone/Acetaminophen ([place] 5-325 Tablet) 1 Each Tablet, 1 EACH PO TID PRN for PAIN, TAB 05/19/18 Hyoscyamine Sulfate* (Levsin*) 0.125 Mg Tablet, 0.125 MG PO Q4H PRN for MUSCLE SPASMS, TAB 05/19/18 Budesonide EC* (Budesonide EC*) 3 Mg Capdr...er, 3 MG PO DAILY, TAB 05/19/18 Pantoprazole* (Protonix*) 40 Mg Tablet.dr, 40 MG PO DAILY, TAB 05/19/18 Multivitamins* (Theragran*) 1 Tab Tab, 1 TAB PO DAILY, TAB 05/19/18 Gabapentin* (Gabapentin*) 300 Mg Capsule, 300 MG PO TID, #90 CAP 05/19/18 Ondansetron Hcl* (Zofran*) 4 Mg Tablet, 4 MG PO TID PRN for NAUSEA AND OR VOMITING, TAB 05/19/18 Quinapril Hcl (Quinapril Hcl) 40 Mg Tablet, 40 MG PO DAILY, #30 TAB 05/19/18 Gemfibrozil* (Lopid*) 600 Mg Tablet, 600 MG PO BID, TAB 05/19/18 Atorvastatin* (Atorvastatin*) 40 Mg Tablet, 40 MG PO QHS, #30 TAB 05/19/18 Medications Current Medications Dextrose/Sodium Chloride 1,000 ml @ 100 mls/hr Q10H IV Last administered on 06/04/18at 04:10; Admin Dose 100 MLS/HR; Start 06/03/18 at 14:47 Acetaminophen/ Hydrocodone Bitart ([place] (5/325)) 1 tab Q4H PRN PO .PAIN 1-5; Start 06/03/18 at 15:00 Acetaminophen/ Hydrocodone Bitart ([place] (5/325)) 2 tab Q4H PRN PO .PAIN 6-10; Start 06/03/18 at 15:00 Prochlorperazine (Compazine) 10 mg Q4H PRN PO NAUSEA/VOMITING; Start 06/03/18 at 15:00 Ondansetron HCl (Zofran Inj) 4 mg Q6H PRN IV NAUSEA/VOMITING Last administered on 06/04/18at 05:26; Admin Dose 4 MG; Start 06/03/18 at 15:00 Al Hydrox/Mg Hydrox/Simethicone (Mag-Al Plus) 15 ml Q4H PRN PO .CONSTIPATION; Start 06/03/18 at 15:00 Docusate Sodium (Colace) 100 mg BID PO Last administered on 06/04/18at 08:53; Admin Dose 100 MG; Start 06/04/18 at 09:00 Acetaminophen (Tylenol Tab) 650 mg Q4H PRN PO TEMP GREATER THAN 101F OR LORENZ; Start 06/03/18 at 15:00 IV Flush (NS 3 ml) 3 ml PER PROTOCOL IV ; Start 06/03/18 at 15:00 Hydromorphone HCl (Dilaudid SENIOR FACILITIES MANAGER) continuous dose: 0.2 dem... Q4PCA IV Last administered on 06/04/18at 11:10; Admin Dose 6 MG; Start 06/03/18 at 15:00 Naloxone HCl (Narcan) 0.2 mg Q2M PRN IV RR 8 BREATHS/MIN OR LESS; Start 06/03/18 at 15:00 Atorvastatin Calcium (Lipitor) 40 mg QHS PO Last administered on 06/03/18at 21:09; Admin Dose 40 MG; Start 06/03/18 at 21:00 Budesonide (Entocort Ec) 3 mg DAILY PO ; Start 06/04/18 at 09:00 Gemfibrozil (Lopid) 600 mg BID PO ; Start 06/03/18 at 21:00 Pantoprazole (Protonix Tab) 40 mg DAILY PO Last administered on 06/04/18 08:56; Admin Dose 40 MG; Start 06/04/18 at 09:00 Benazepril HCl (Lotensin) 40 mg DAILY PO Last administered on 06/04/18 08:56; Admin Dose 40 MG; Start 06/04/18 at 09:00 Methocarbamol (Robaxin) 500 mg Q8 PO Last administered on 06/04/18 04:11; Admin Dose 500 MG; Start 06/03/18 at 22:00 Assessment/Plan Hospital Course (Demo Recall) 58 y/o male pmh HLD, HTN, GERD, colitis s/p lumbar spine surgery. Assessment/Plan (Daily) #s/p lumbar back surgery -PT -judicious pain management, planned to DC SENIOR FACILITIES MANAGER tomorrow -advance diet per surgery #HTN-likely elevated due to pain. Would avoid adding BP meds at this time -continue benazepril 40mg daily -control pain #nausea -zofran #HLD- -home meds #GERD -home meds #colitis -home meds Dispo-pending clinical improvement RADHA DEJESUS MD Jun 04, 2018 14:36
[2018-06-04] MEDS: BUDESONIDE (EC) 3 MG CAP PO SCH (15:59)
[2018-06-04] MEDS: GEMFIBROZIL 600 MG TAB PO SCH ×2 (15:59→20:41)
[2018-06-04 20:30] VITALS: BP 156/84; PULSE 100; RESP 20
[2018-06-04] MEDS: ATORVASTATIN 40 MG TAB PO SCH (20:42)
[2018-06-05] MEDS: DEXTROSE 5%-0.45% NACL 1,000 ML IV SCH ×4 (01:35→22:08)
[2018-06-05] MEDS: ONDANSETRON 4 MG INJ IV PRN (01:51)
[2018-06-05 02:30] VITALS: BP 153/84; PULSE 106; RESP 19
[2018-06-05] MEDS: METHOCARBAMOL 500 MG TAB PO SCH ×3 (05:19→22:00)
[2018-06-05] MEDS: PROCHLORPERAZINE 10 MG TAB PO PRN ×2 (05:21→17:31)
[2018-06-05 07:58] VITALS: BP 138/74; PULSE 81; RESP 18
[2018-06-05] MEDS: PANTOPRAZOLE (EC) 40 MG TAB PO SCH (08:25)
[2018-06-05] MEDS ORDERED: HYDROmorphONE 0.5 MG/0.5 ML SYG IV PRN (10:30)
[2018-06-05] MEDS: HYDROCODONE/APAP (10/325) TAB PO PRN ×4 (10:34→18:48)
--- NOTE | 2018-06-05 11:15 | CONS ---
Consult Date/Type/Reason Admit Date/Time Jun 03, 2018 at 05:41 Initial Consult Date 06/03/2018 Type of Consultation: Internal Medicine Reason for Consultation HLD, HTN, GERD, Colitis Requesting Provider: VINCENT BALDERAS MD Date/Time of Note DATE: 06/05/18 TIME: 11:11 Subjective Off RISK CONTROL OFFICER. Starting to have clear liquids. Not yet passing gas but feels that he is about to. Continues to have moderate abdominal pain. Denies fevers, chills. Continues to have some nausea but no emesis today. No cough. No sOB. Objective Vitals Vital Signs Date Temp Pulse Resp B/P (MAP) Pulse Ox O2 O2 Flow FiO2 Time Delivery Rate 06/05/18 17 10:45 06/05/18 Nasal 3.0 08:00 Cannula 06/05/18 98.0 81 138/74 95 07:58 (95) Intake and Output 06/04/18 06/04/18 06/05/18 1515:00 23:00 07:00 IntakeIntake Total 100 ml 790 ml OutputOutput Total 30 ml 1200 ml BalanceBalance 70 ml -410 ml Exam Gen-nad HEENT-op clear,MMM CV-RRR,nml s1/s2. No m/r/g Abd-soft,ND, minimal bowel sounds moderate tender around surgical site to moderate palpation Ext-no c/c/e. seen to move all extremities Results/Medications Result Diagram: 06/05/1842806/05/18428 Results 24 hrs Laboratory Tests Test 06/05/18 04:29 White Blood Count 15.9 H Red Blood Count 4.29 L Hemoglobin 13.1 L Hematocrit 38.1 L Mean Corpuscular Volume 88.8 Mean Corpuscular Hemoglobin 30.5 Mean Corpuscular Hemoglobin Concent 34.4 Red Cell Distribution Width 12.1 Platelet Count 296 Mean Platelet Volume 9.7 Immature Granulocytes % 0.600 H Neutrophils % 80.9 H Lymphocytes % 7.7 L Monocytes % 10.4 Eosinophils % 0.1 Basophils % 0.3 Nucleated Red Blood Cells % 0.0 Immature Granulocytes # 0.100 H Neutrophils # 12.9 H Lymphocytes # 1.2 Monocytes # 1.7 H Eosinophils # 0.0 Basophils # 0.0 Nucleated Red Blood Cells # 0.0 Sodium Level 131 L Potassium Level 3.2 L Chloride Level 95 L Carbon Dioxide Level 25 Anion Gap 11 Blood Urea Nitrogen 5 L Creatinine 0.49 L Est Glomerular Filtrat Rate mL/min > 60 Glucose Level 171 Calcium Level 8.6 Total Bilirubin 0.8 Direct Bilirubin 0.00 Indirect Bilirubin 0.8 Aspartate Amino Transf (AST/SGOT) 31 Alanine Aminotransferase (ALT/SGPT) 42 Alkaline Phosphatase 51 Total Protein 6.2 Albumin 3.5 Globulin 2.70 Albumin/Globulin Ratio 1.29 Home Meds Reported Medications Ustekinumab (Stelara) 90 Mg/1 Ml Disp.syrin, 90 MG SQ EVERY 6 WEEKS 05/19/18 Cyclobenzaprine Hcl* (Cyclobenzaprine Hcl*) 10 Mg Tablet, 10 MG PO BID PRN for MUSCLE SPASMS, #60 TAB 05/19/18 Hydrocodone/Acetaminophen ([place] 5-325 Tablet) 1 Each Tablet, 1 EACH PO TID PRN for PAIN, TAB 05/19/18 Hyoscyamine Sulfate* (Levsin*) 0.125 Mg Tablet, 0.125 MG PO Q4H PRN for MUSCLE SPASMS, TAB 05/19/18 Budesonide EC* (Budesonide EC*) 3 Mg Capdr...er, 3 MG PO DAILY, TAB 05/19/18 Pantoprazole* (Protonix*) 40 Mg Tablet.dr, 40 MG PO DAILY, TAB 05/19/18 Multivitamins* (Theragran*) 1 Tab Tab, 1 TAB PO DAILY, TAB 05/19/18 Gabapentin* (Gabapentin*) 300 Mg Capsule, 300 MG PO TID, #90 CAP 05/19/18 Ondansetron Hcl* (Zofran*) 4 Mg Tablet, 4 MG PO TID PRN for NAUSEA AND OR VOMITI NG, TAB 05/19/18 Quinapril Hcl (Quinapril Hcl) 40 Mg Tablet, 40 MG PO DAILY, #30 TAB 05/19/18 Gemfibrozil* (Lopid*) 600 Mg Tablet, 600 MG PO BID, TAB 05/19/18 Atorvastatin* (Atorvastatin*) 40 Mg Tablet, 40 MG PO QHS, #30 TAB 05/19/18 Medications Current Medications Dextrose/Sodium Chloride 1,000 ml @ 100 mls/hr Q10H IV Last administered on 06/05/18at 10:37; Admin Dose 100 MLS/HR; Start 06/03/18 at 14:47 Acetaminophen/ Hydrocodone Bitart ([place] (5/325)) 1 tab Q4H PRN PO .PAIN 1-5; Start 06/03/18 at 15:00 Prochlorperazine (Compazine) 10 mg Q4H PRN PO NAUSEA/VOMITING Last administered on 06/05/18 05:21; Admin Dose 10 MG; Start 06/03/18 at 15:00 Ondansetron HCl (Zofran Inj) 4 mg Q6H PRN IV NAUSEA/VOMITING Last administered on 06/05/18 01:51; Admin Dose 4 MG; Start 06/03/18 at 15:00 Al Hydrox/Mg Hydrox/Simethicone (Mag-Al Plus) 15 ml Q4H PRN PO .CONSTIPATION; Start 06/03/18 at 15:00 Docusate Sodium (Colace) 100 mg BID PO Last administered on 06/04/18 20:42; Admin Dose 100 MG; Start 06/04/18 at 09:00 Acetaminophen (Tylenol Tab) 650 mg Q4H PRN PO TEMP GREATER THAN 101F OR LORENZ Last administered on 06/05/18 01:40; Admin Dose 650 MG; Start 06/03/18 at 15:00 IV Flush (NS 3 ml) 3 ml PER PROTOCOL IV ; Start 06/03/18 at 15:00 Naloxone HCl (Narcan) 0.2 mg Q2M PRN IV RR 8 BREATHS/MIN OR LESS; Start 06/03/18 at 15:00 Atorvastatin Calcium (Lipitor) 40 mg QHS PO Last administered on 06/04/18 20:42; Admin Dose 40 MG; Start 06/03/18 at 21:00 Budesonide (Entocort Ec) 3 mg DAILY PO Last administered on 06/04/18 15:59; Admin Dose 3 MG; Start 06/04/18 at 09:00 Gemfibrozil (Lopid) 600 mg BID PO Last administered on 06/04/18 20:41; Admin Dose 600 MG; Start 06/03/18 at 21:00 Pantoprazole (Protonix Tab) 40 mg DAILY PO Last administered on 06/05/18 08:25; Admin Dose 40 MG; Start 06/04/18 at 09:00 Benazepril HCl (Lotensin) 40 mg DAILY PO Last administered on 06/04/18at 08:56; Admin Dose 40 MG; Start 06/04/18 at 09:00 Methocarbamol (Robaxin) 500 mg Q8 PO Last administered on 06/05/18at 05:19; Admin Dose 500 MG; Start 06/03/18 at 22:00 Acetaminophen/ Hydrocodone Bitart ([place] (10/325)) 1 tab Q4H PRN PO MODERATE PAIN LEVEL 4-6 Last administered on 06/05/18at 10:34; Admin Dose 1 TAB; Start 06/05/18 at 10:30 Hydromorphone HCl (Dilaudid) 0.5 mg Q3H PRN IV SEVERE PAIN LEVEL 7-10; Start 06/05/18 at 10:30 Assessment/Plan Hospital Course (Demo Recall) 58 y/o male pmh HLD, HTN, GERD, colitis s/p lumbar spine surgery. Assessment/Plan (Daily) #s/p lumbar back surgery -PT, walked around the [place] today -judicious pain management, off RISK CONTROL OFFICER -advance diet per surgery #HTN-improved -continue benazepril 40mg daily -control pain #leukocytosis -trend -monitor for s/s of infection -no signs of infection currently. #nausea-improved but persists -zofran #HLD- -home meds #GERD -home meds #colitis -home meds Dispo-pending clinical improvement. Anticipate will be hospitalized another 2-3 days RADHA DEJESUS MD Jun 05, 2018 11:15
[2018-06-05] MEDS ORDERED: POTASSIUM CHLORIDE 50 ML IVPB ONE (12:00)
[2018-06-05 15:35] VITALS: BP 126/77; PULSE 90; RESP 18
[2018-06-05] MEDS: DOCUSATE SODIUM 100 MG CAP PO SCH ×2 (18:20→21:00)
[2018-06-05] MEDS: BENAZEPRIL 20 MG TAB PO SCH (18:20)
[2018-06-05] MEDS: BUDESONIDE (EC) 3 MG CAP PO SCH (18:21)
[2018-06-05] MEDS: GEMFIBROZIL 600 MG TAB PO SCH ×2 (18:21→21:00)
[2018-06-05] MEDS ORDERED: morphine 2 MG INJ IV PRN (19:00)
[2018-06-05] MEDS ORDERED: LORAZEPAM 2 MG INJ IV PRN (19:00)
[2018-06-05 19:28] VITALS: BP 137/82; PULSE 87; RESP 16
[2018-06-05] MEDS ORDERED: DEXAMETHASONE 4 MG/ML 1 ML INJ IV ONE (20:00)
[2018-06-05] MEDS: ATORVASTATIN 40 MG TAB PO SCH (21:00)
[2018-06-05] MEDS: ACETAMINOPHEN 1000MG/100ML IV 100 ML IVPB SCH (21:58)
[2018-06-06 01:56] VITALS: BP 138/72; PULSE 64; RESP 16
[2018-06-06] MEDS: ACETAMINOPHEN 1000MG/100ML IV 100 ML IVPB SCH ×2 (05:52→13:10)
[2018-06-06] MEDS: METHOCARBAMOL 500 MG TAB PO SCH ×3 (05:52→21:39)
[2018-06-06] MEDS: DEXTROSE 5%-0.45% NACL 1,000 ML IV SCH (05:58)
[2018-06-06 07:27] VITALS: BP 131/62; PULSE 81; RESP 18
--- NOTE | 2018-06-06 07:29 | CONS ---
Consultation Date/Type/Reason Admit Date/Time Jun 03, 2018 at 05:41 Initial Consult Date Requesting Provider: VINCENT BALDERAS MD Date/Time of Note DATE: 06/06/18 TIME: 07:26 24 HR Interval Summary Free Text/Dictation S::58 yo M POD#3 s/p L4-5 ALIF w/ post decompression and instrumented fusion. Patient with some emesis and abdominal distension yesterday. Dilaudid was d/c and he was made npo. Reports some improvement in abdomial pain and reports that he assed gas this am. O: Vital Signs Date Temp Pulse Resp B/P (MAP) Pulse Ox O2 O2 Flow FiO2 Time Delivery Rate 06/06/18 97.7 64 16 138/72 94 Room Air 01:56 (94) Gen: AAOx3, NAD Abdomen: mild distension, No TTP Spine: 4/5 B/L HF/KE/TA/GS/EHL, +SILT L3-S1, dressings C/D/I Laboratory Tests 06/06/18 04:48 A/P:58 yo M POD#1 s/p L4-5 ALIF w/ post decompression and instrumented fusion. 1. Start regular diet once passing gasa nd abdominal pain improves 2. Percocet prn for pain 3. OOB w/ PT 4. appreciate med recs Exam/Review of Systems Exam Vitals Vital Signs Date Temp Pulse Resp B/P (MAP) Pulse Ox O2 O2 Flow FiO2 Time Delivery Rate 06/06/18 97.7 64 16 138/72 94 Room Air 01:56 (94) 06/05/18 3.0 15:35 Intake and Output 06/05/18 06/05/18 06/06/18 1515:00 23:00 07:00 IntakeIntake Total 1290 ml 1220 ml 1100 ml OutputOutput Total 1500 ml 2000 ml BalanceBalance 1290 ml -280 ml -900 ml Results Result Diagram: 06/06/188 06/06/18447 Results 24hrs Laboratory Tests Test 06/06/18 04:48 White Blood Count 13.1 H Red Blood Count 4.27 L Hemoglobin 12.9 L Hematocrit 37.7 L Mean Corpuscular Volume 88.3 Mean Corpuscular Hemoglobin 30.2 Mean Corpuscular Hemoglobin Concent 34.2 Red Cell Distribution Width 12.1 Platelet Count 286 Mean Platelet Volume 9.8 Immature Granulocytes % 0.700 H Neutrophils % 88.8 H Lymphocytes % 4.7 L Monocytes % 5.7 Eosinophils % 0.0 Basophils % 0.1 Nucleated Red Blood Cells % 0.0 Immature Granulocytes # 0.090 H Neutrophils # 11.6 H Lymphocytes # 0.6 L Monocytes # 0.8 Eosinophils # 0.0 Basophils # 0.0 Nucleated Red Blood Cells # 0.0 Sodium Level 134 L Potassium Level 4.6 Chloride Level 99 Carbon Dioxide Level 26 Anion Gap 9 Blood Urea Nitrogen 6 L Creatinine 0.54 L Est Glomerular Filtrat Rate mL/min > 60 Glucose Level 221 H Calcium Level 9.1 Medications Medication Current Medications Dextrose/Sodium Chloride 1,000 ml @ 125 mls/hr Q8H IV Last administered on 06/06/18 05:58; Admin Dose 125 MLS/HR; Start 06/03/18 at 14:47 Prochlorperazine (Compazine) 10 mg Q4H PRN PO NAUSEA/VOMITING Last administered on 06/05/18 17:31; Admin Dose 10 MG; Start 06/03/18 at 15:00 Ondansetron HCl (Zofran Inj) 4 mg Q6H PRN IV NAUSEA/VOMITING Last administered on 06/05/18at 01:51; Admin Dose 4 MG; Start 06/03/18 at 15:00 Al Hydrox/Mg Hydrox/Simethicone (Mag-Al Plus) 15 ml Q4H PRN PO .CONSTIPATION; Start 06/03/18 at 15:00 Docusate Sodium (Colace) 100 mg BID PO Last administered on 06/05/18at 18:20; Admin Dose 100 MG; Start 06/04/18 at 09:00 Acetaminophen (Tylenol Tab) 650 mg Q4H PRN PO TEMP GREATER THAN 101F OR LORENZ Last administered on 06/05/18 01:40; Admin Dose 650 MG; Start 06/03/18 at 15:00 IV Flush (NS 3 ml) 3 ml PER PROTOCOL IV ; Start 06/03/18 at 15:00 Naloxone HCl (Narcan) 0.2 mg Q2M PRN IV RR 8 BREATHS/MIN OR LESS; Start 06/03/18 at 15:00 Atorvastatin Calcium (Lipitor) 40 mg QHS PO Last administered on 06/04/18 20:42; Admin Dose 40 MG; Start 06/03/18 at 21:00 Budesonide (Entocort Ec) 3 mg DAILY PO Last administered on 06/05/18 18:21; Admin Dose 3 MG; Start 06/04/18 at 09:00 Gemfibrozil (Lopid) 600 mg BID PO Last administered on 06/05/18 18:21; Admin Dose 600 MG; Start 06/03/18 at 21:00 Pantoprazole (Protonix Tab) 40 mg DAILY PO Last administered on 06/05/18 08:25; Admin Dose 40 MG; Start 06/04/18 at 09:00 Benazepril HCl (Lotensin) 40 mg DAILY PO Last administered on 06/05/18 18:20; Admin Dose 40 MG; Start 06/04/18 at 09:00 Methocarbamol (Robaxin) 500 mg Q8 PO Last administered on 06/05/18 13:27; Admin Dose 500 MG; Start 06/03/18 at 22:00 Acetaminophen/ Hydrocodone Bitart ([employer] (10/325)) 1 tab Q4H PRN PO MODERATE PAIN LEVEL 4-6 Last administered on 06/05/18 14:24; Admin Dose 1 TAB; Start 06/05/18 at 10:30 Acetaminophen 100 ml @ 400 mls/hr Q8H IVPB Last administered on 06/06/18 05:52; Admin Dose 400 MLS/HR; Start 06/05/18 at 19:00; Stop 06/06/18 at 18:59 Oxycodone/ Acetaminophen ([place]ocet (10/ 325)) 1 tab Q4H PRN PO PAIN LEVEL 8-10; Start 06/05/18 at 19:00 Morphine Sulfate (morphine) 2 mg Q4H PRN IV SEVERE PAIN LEVEL 7-10; Start 06/05 at 19:00 VINCENT BALDERAS MD Jun 06, 2018 07:29
[2018-06-06] MEDS: OXYCODONE/ACETAMINOPHEN (10/325) TAB PO PRN ×3 (08:09→23:57)
--- NOTE | 2018-06-06 08:42 | CONS ---
Assessment/Plan Assessment/Plan Assessment/Plan (Daily) 1. Ileus and related nausea is better, will check liver tests and lipase 2. Cont NPO, except for ice chips and dilute juice if tolerated 3. Elev CHO sec to decadron, IV changed 4. Crohns disease 5. HBP, controlled Consultation Date/Type/Reason Admit Date/Time Jun 03, 2018 at 05:41 Initial Consult Date Requesting Provider: VINCENT BALDERAS MD Date/Time of Note DATE: 06/06/18 TIME: 08:40 Detailed Summary Respiratory: cough Cardiovascular: No chest pain, No orthopenea Gastrointestinal: no complaints, other (less distended, has flatus, nausea is better) Genitourinary: no complaints Musculoskeletal: back pain (is less) Exam/Review of Systems Exam Vitals Vital Signs Date Temp Pulse Resp B/P (MAP) Pulse Ox O2 O2 Flow FiO2 Time Delivery Rate 06/06/18 97.8 81 18 131/62 96 Room Air 07:27 (85) 06/05/18 3.0 15:35 Intake and Output 06/05/18 06/05/18 06/06/18 1515:00 23:00 07:00 IntakeIntake Total 1290 ml 1220 ml 1100 ml OutputOutput Total 1500 ml 2000 ml BalanceBalance 1290 ml -280 ml -900 ml Neck: No jvd Respiratory: clear to auscultation Cardiovascular: regular rate and rhythm Gastrointestinal: soft, bowel sounds (present); No tender Extremities: No edema Neurological: No focal weakness Results Result Diagram: 06/06/18 0448 06/06/18 0448 Results 24hrs Laboratory Tests Test 06/06/18 04:48 White Blood Count 13.1 H Red Blood Count 4.27 L Hemoglobin 12.9 L Hematocrit 37.7 L Mean Corpuscular Volume 88.3 Mean Corpuscular Hemoglobin 30.2 Mean Corpuscular Hemoglobin Concent 34.2 Red Cell Distribution Width 12.1 Platelet Count 286 Mean Platelet Volume 9.8 Immature Granulocytes % 0.700 H Neutrophils % 88.8 H Lymphocytes % 4.7 L Monocytes % 5.7 Eosinophils % 0.0 Basophils % 0.1 Nucleated Red Blood Cells % 0.0 Immature Granulocytes # 0.090 H Neutrophils # 11.6 H Lymphocytes # 0.6 L Monocytes # 0.8 Eosinophils # 0.0 Basophils # 0.0 Nucleated Red Blood Cells # 0.0 Sodium Level 134 L Potassium Level 4.6 Chloride Level 99 Carbon Dioxide Level 26 Anion Gap 9 Blood Urea Nitrogen 6 L Creatinine 0.54 L Est Glomerular Filtrat Rate mL/min > 60 Glucose Level 221 H Calcium Level 9.1 Phosphorus Level 1.7 L Magnesium Level 2.2 Total Bilirubin 0.5 Direct Bilirubin 0.00 Indirect Bilirubin 0.5 Aspartate Amino Transf (AST/SGOT) 22 Alanine Aminotransferase (ALT/SGPT) 35 Alkaline Phosphatase 67 Total Protein 5.6 L Albumin 3.2 L Lipase 13 L Medications Medication Current Medications Prochlorperazine (Compazine) 10 mg Q4H PRN PO NAUSEA/VOMITING Last administered on 06/05/18 17:31; Admin Dose 10 MG; Start 06/03/18 at 15:00 Ondansetron HCl (Zofran Inj) 4 mg Q6H PRN IV NAUSEA/VOMITING Last administered on 06/05/18 01:51; Admin Dose 4 MG; Start 06/03/18 at 15:00 Al Hydrox/Mg Hydrox/Simethicone (Mag-Al Plus) 15 ml Q4H PRN PO .CONSTIPATION; Start 06/03/18 at 15:00 Docusate Sodium (Colace) 100 mg BID PO Last administered on 06/05/18 18:20; Admin Dose 100 MG; Start 06/04/18 at 09:00 Acetaminophen (Tylenol Tab) 650 mg Q4H PRN PO TEMP GREATER THAN 101F OR LORENZ Last administered on 06/05/18 01:40; Admin Dose 650 MG; Start 06/03/18 at 15:00 IV Flush (NS 3 ml) 3 ml PER PROTOCOL IV ; Start 06/03/18 at 15:00 Naloxone HCl (Narcan) 0.2 mg Q2M PRN IV RR 8 BREATHS/MIN OR LESS; Start 06/03/18 at 15:00 Atorvastatin Calcium (Lipitor) 40 mg QHS PO Last administered on 06/04/18 20:42; Admin Dose 40 MG; Start 06/03/18 at 21:00 Budesonide (Entocort Ec) 3 mg DAILY PO Last administered on 06/05/18 18:21; Admin Dose 3 MG; Start 06/04/18 at 09:00 Gemfibrozil (Lopid) 600 mg BID PO Last administered on 06/05/18 18:21; Admin Dose 600 MG; Start 06/03/18 at 21:00 Pantoprazole (Protonix Tab) 40 mg DAILY PO Last administered on 06/05/18 08:25; Admin Dose 40 MG; Start 06/04/18 at 09:00 Benazepril HCl (Lotensin) 40 mg DAILY PO Last administered on 06/05/18 18:20; Admin Dose 40 MG; Start 06/04/18 at 09:00 Methocarbamol (Robaxin) 500 mg Q8 PO Last administered on 06/05/18 13:27; Admin Dose 500 MG; Start 06/03/18 at 22:00 Acetaminophen/ Hydrocodone Bitart ([place] (10/325)) 1 tab Q4H PRN PO MODERATE PAIN LEVEL 4-6 Last administered on 06/05/18 14:24; Admin Dose 1 TAB; Start 06/05/18 at 10:30 Acetaminophen 100 ml @ 400 mls/hr Q8H IVPB Last administered on 06/06/18 05:52; Admin Dose 400 MLS/HR; Start 06/05/18 at 19:00; Stop 06/06/18 at 18:59 Oxycodone/ Acetaminophen (Endocet (10/ 325)) 1 tab Q4H PRN PO PAIN LEVEL 8-10 Last administered on 06/06/18 08:09; Admin Dose 1 TAB; Start 06/05/18 at 19:00 Morphine Sulfate (morphine) 2 mg Q4H PRN IV SEVERE PAIN LEVEL 7-10; Start 06/05/18 at 19:00 Sodium Chloride 1,000 ml @ 80 mls/hr [id number] IV ; Start 06/06/18 at 08:00 FAINA CALI MD Jun 06, 2018 08:42
[2018-06-06] MEDS: BUDESONIDE (EC) 3 MG CAP PO SCH (09:13)
[2018-06-06] MEDS: GEMFIBROZIL 600 MG TAB PO SCH ×2 (09:13→21:39)
[2018-06-06] MEDS: SOD CHLORIDE 0.9% 1,000 ML IV SCH ×2 (09:13→21:43)
[2018-06-06] MEDS: DOCUSATE SODIUM 100 MG CAP PO SCH ×2 (09:14→21:39)
[2018-06-06] MEDS: PANTOPRAZOLE (EC) 40 MG TAB PO SCH (09:14)
[2018-06-06] MEDS: BENAZEPRIL 20 MG TAB PO SCH (09:14)
[2018-06-06 14:18] VITALS: BP 155/82; PULSE 87; RESP 18
[2018-06-06 19:26] VITALS: BP 148/70; PULSE 79; RESP 16
[2018-06-06] MEDS: ATORVASTATIN 40 MG TAB PO SCH (21:39)
[2018-06-07 01:57] VITALS: BP 129/72; PULSE 70; RESP 20
[2018-06-07] MEDS: METHOCARBAMOL 500 MG TAB PO SCH ×3 (05:59→22:00)
[2018-06-07 07:50] VITALS: BP 157/90; PULSE 71; RESP 18
--- NOTE | 2018-06-07 08:39 | CONS ---
Assessment/Plan Assessment/Plan Assessment/Plan (Daily) 1. Post op lumbar laminectomy 2. Ileus is resolving adn tolerating clear liquids 3. Hypokalemia, will replete Consultation Date/Type/Reason Admit Date/Time Jun 03, 2018 at 05:41 Initial Consult Date Requesting Provider: VINCENT BALDERAS MD Date/Time of Note DATE: 06/07/18 TIME: 08:37 Detailed Summary Cardiovascular: No chest pain, No lightheadedness, No orthopenea Genitourinary: other (much flatus and now without n or vomitng) Musculoskeletal: back pain (is less) Exam/Review of Systems Exam Vitals Vital Signs Date Temp Pulse Resp B/P (MAP) Pulse Ox O2 O2 Flow FiO2 Time Delivery Rate 06/07/18 98.0 71 18 157/90 99 Room Air 07:50 (112) 06/05/18 3.0 15:35 Intake and Output 06/06/18 06/06/18 06/07/18 1515:00 23:00 07:00 IntakeIntake Total 475 ml 1460 ml 1590 ml OutputOutput Total 750 ml 1500 ml BalanceBalance 475 ml 710 ml 90 ml Neck: No jvd Respiratory: clear to auscultation Cardiovascular: regular rate and rhythm Gastrointestinal: soft Extremities: No edema, No tenderness Results Result Diagram: 06/07/1844306/07/184 Results 24hrs Laboratory Tests Test 06/07/18 04:44 White Blood Count 8.3 # Red Blood Count 3.70 L Hemoglobin 11.3 L Hematocrit 32.5 L Mean Corpuscular Volume 87.8 Mean Corpuscular Hemoglobin 30.5 Mean Corpuscular Hemoglobin Concent 34.8 Red Cell Distribution Width 12.1 Platelet Count 333 Mean Platelet Volume 9.6 Immature Granulocytes % 0.700 H Neutrophils % 68.5 Lymphocytes % 18.2 Monocytes % 10.2 Eosinophils % 2.2 Basophils % 0.2 Nucleated Red Blood Cells % 0.0 Immature Granulocytes # 0.060 H Neutrophils # 5.7 Lymphocytes # 1.5 Monocytes # 0.8 Eosinophils # 0.2 Basophils # 0.0 Nucleated Red Blood Cells # 0.0 Sodium Level 135 Potassium Level 3.3 L Chloride Level 102 Carbon Dioxide Level 24 Anion Gap 9 Blood Urea Nitrogen 10 Creatinine 0.50 L Est Glomerular Filtrat Rate mL/min > 60 Glucose Level 135 # Calcium Level 8.2 L Phosphorus Level 2.7 Magnesium Level 2.2 Medications Medication Current Medications Prochlorperazine (Compazine) 10 mg Q4H PRN PO NAUSEA/VOMITING Last administered on 06/05/18 17:31; Admin Dose 10 MG; Start 06/03/18 at 15:00 Ondansetron HCl (Zofran Inj) 4 mg Q6H PRN IV NAUSEA/VOMITING Last administered on 06/05/18 01:51; Admin Dose 4 MG; Start 06/03/18 at 15:00 Al Hydrox/Mg Hydrox/Simethicone (Mag-Al Plus) 15 ml Q4H PRN PO .CONSTIPATION; Start 06/03/18 at 15:00 Docusate Sodium (Colace) 100 mg BID PO Last administered on 06/06/18 21:39; Admin Dose 100 MG; Start 06/04/18 at 09:00 Acetaminophen (Tylenol Tab) 650 mg Q4H PRN PO TEMP GREATER THAN 101F OR LORENZ Last administered on 06/05/18 01:40; Admin Dose 650 MG; Start 06/03/18 at 15:00 IV Flush (NS 3 ml) 3 ml PER PROTOCOL IV ; Start 06/03/18 at 15:00 Naloxone HCl (Narcan) 0.2 mg Q2M PRN IV RR 8 BREATHS/MIN OR LESS; Start at 15:00 Atorvastatin Calcium (Lipitor) 40 mg QHS PO Last administered on 06/06/18 21:39; Admin Dose 40 MG; Start 06/03/18 at 21:00 Budesonide (Entocort Ec) 3 mg DAILY PO Last administered on 06/06/18 09:13; Admin Dose 3 MG; Start 06/04/18 at 09:00 Gemfibrozil (Lopid) 600 mg BID PO Last administered on 06/06/18 21:39; Admin Dose 600 MG; Start 06/03/18 at 21:00 Pantoprazole (Protonix Tab) 40 mg DAILY PO Last administered on 06/06/18 09:14; Admin Dose 40 MG; Start 06/04/18 at 09:00 Benazepril HCl (Lotensin) 40 mg DAILY PO Last administered on 06/06/18 09:14; Admin Dose 40 MG; Start 06/04/18 at 09:00 Methocarbamol (Robaxin) 500 mg Q8 PO Last administered on 06/07/18at 05:59; Admin Dose 500 MG; Start 06/03/18 at 22:00 Acetaminophen/ Hydrocodone Bitart ([place] (325)) 1 tab Q4H PRN PO MODERATE PAIN LEVEL 4-6 Last administered on 06/05/18at 14:24; Admin Dose 1 TAB; Start 06/05/18 at 10:30 Oxycodone/ Acetaminophen (Endocet ( 325)) 1 tab Q4H PRN PO PAIN LEVEL 8-10 Last administered on 06/06/18at 23:57; Admin Dose 1 TAB; Start 06/05/18 at 19:00 Morphine Sulfate (morphine) 2 mg Q4H PRN IV SEVERE PAIN LEVEL 7-10; Start 06/05/18 at 19:00 Sodium Chloride 1,000 ml @ 80 mls/hr [id number] IV Last administered on 06/06/18at 21:43; Admin Dose 80 MLS/HR; Start 06/06/18 at 08:00 Potassium Chloride (Klor-Con 10) 40 meq ONCE ONCE PO ; Start 06/07/18 at 09:00; Stop 06/07/18 at 09:01; Status UNV FAINA CALI MD Jun 07, 2018 08:39
[2018-06-07] MEDS ORDERED: POTASSIUM CHLORIDE (SR) 20 MEQ TAB PO ONE (09:00)
[2018-06-07] MEDS: DOCUSATE SODIUM 100 MG CAP PO SCH ×2 (09:07→20:15)
[2018-06-07] MEDS: GEMFIBROZIL 600 MG TAB PO SCH ×2 (09:07→20:14)
[2018-06-07] MEDS: BUDESONIDE (EC) 3 MG CAP PO SCH (09:07)
[2018-06-07] MEDS: OXYCODONE/ACETAMINOPHEN (10/325) TAB PO PRN ×3 (09:08→20:19)
[2018-06-07] MEDS: PANTOPRAZOLE (EC) 40 MG TAB PO SCH (09:08)
[2018-06-07] MEDS: BENAZEPRIL 20 MG TAB PO SCH (09:08)
[2018-06-07] MEDS: SOD CHLORIDE 0.9% 1,000 ML IV SCH (10:09)
--- NOTE | 2018-06-07 12:44 | CONS ---
Consultation Date/Type/Reason Admit Date/Time Jun 03, 2018 at 05:41 Initial Consult Date Requesting Provider: VINCENT BALDERAS MD Date/Time of Note DATE: 06/07/18 TIME: 12:42 24 HR Interval Summary Free Text/Dictation Patient had no acute events. Ileus has improved. He is passing gas and tolerating clears. He has been OOB w/ PT. We will advance his diet to regular today and d/c ronquillo. We will have dispo planning for tomorrow once he is tolerating a regular diet and clears PT. Exam/Review of Systems Exam Vitals Vital Signs Date Temp Pulse Resp B/P (MAP) Pulse Ox O2 O2 Flow FiO2 Time Delivery Rate 06/07/18 98.0 71 18 157/90 99 Room Air 07:50 (112) 06/05/18 3.0 15:35 Intake and Output 06/06/18 06/06/18 06/07/18 1515:00 23:00 07:00 IntakeIntake Total 475 ml 1460 ml 1590 ml OutputOutput Total 750 ml 1500 ml BalanceBalance 475 ml 710 ml 90 ml Results Result Diagram: 06/07/18 0444 06/07/18 0444 Results 24hrs Laboratory Tests Test 06/07/18 04:44 White Blood Count 8.3 # Red Blood Count 3.70 L Hemoglobin 11.3 L Hematocrit 32.5 L Mean Corpuscular Volume 87.8 Mean Corpuscular Hemoglobin 30.5 Mean Corpuscular Hemoglobin Concent 34.8 Red Cell Distribution Width 12.1 Platelet Count 333 Mean Platelet Volume 9.6 Immature Granulocytes % 0.700 H Neutrophils % 68.5 Lymphocytes % 18.2 Monocytes % 10.2 Eosinophils % 2.2 Basophils % 0.2 Nucleated Red Blood Cells % 0.0 Immature Granulocytes # 0.060 H Neutrophils # 5.7 Lymphocytes # 1.5 Monocytes # 0.8 Eosinophils # 0.2 Basophils # 0.0 Nucleated Red Blood Cells # 0.0 Sodium Level 135 Potassium Level 3.3 L Chloride Level 102 Carbon Dioxide Level 24 Anion Gap 9 Blood Urea Nitrogen 10 Creatinine 0.50 L Est Glomerular Filtrat Rate mL/min > 60 Glucose Level 135 # Calcium Level 8.2 L Phosphorus Level 2.7 Magnesium Level 2.2 Medications Medication Current Medications Prochlorperazine (Compazine) 10 mg Q4H PRN PO NAUSEA/VOMITING Last administered on 06/05/18 17:31; Admin Dose 10 MG; Start 06/03/18 at 15:00 Ondansetron HCl (Zofran Inj) 4 mg Q6H PRN IV NAUSEA/VOMITING Last administered on 06/05/18 01:51; Admin Dose 4 MG; Start 06/03/18 at 15:00 Al Hydrox/Mg Hydrox/Simethicone (Mag-Al Plus) 15 ml Q4H PRN PO .CONSTIPATION; Start 06/03/18 at 15:00 Docusate Sodium (Colace) 100 mg BID PO Last administered on 06/07/18 09:07; Admin Dose 100 MG; Start 06/04/18 at 09:00 Acetaminophen (Tylenol Tab) 650 mg Q4H PRN PO TEMP GREATER THAN 101F OR LORENZ Last administered on 06/05/18 01:40; Admin Dose 650 MG; Start 06/03/18 at 15:00 IV Flush (NS 3 ml) 3 ml PER PROTOCOL IV ; Start 06/03/18 at 15:00 Naloxone HCl (Narcan) 0.2 mg Q2M PRN IV RR 8 BREATHS/MIN OR LESS; Start 06/03/18 at 15:00 Atorvastatin Calcium (Lipitor) 40 mg QHS PO Last administered on 06/06/18 2 1:39; Admin Dose 40 MG; Start 06/03/18 at 21:00 Budesonide (Entocort Ec) 3 mg DAILY PO Last administered on 06/07/18 09:07; Admin Dose 3 MG; Start 06/04/18 at 09:00 Gemfibrozil (Lopid) 600 mg BID PO Last administered on 06/07/18 09:07; Admin Dose 600 MG; Start 06/03/18 at 21:00 Pantoprazole (Protonix Tab) 40 mg DAILY PO Last administered on 06/07/18 09:08; Admin Dose 40 MG; Start 06/04/18 at 09:00 Benazepril HCl (Lotensin) 40 mg DAILY PO Last administered on 06/07/18 09:08; Admin Dose 40 MG; Start 06/04/18 at 09:00 Methocarbamol (Robaxin) 500 mg Q8 PO Last administered on 4/2/19at 05:59; Admin Dose 500 MG; Start 06/03/18 at 22:00 Acetaminophen/ Hydrocodone Bitart ([place] ()) 1 tab Q4H PRN PO MODERATE PAIN LEVEL 4-6 Last administered on 06/05/18at 14:24; Admin Dose 1 TAB; Start at 10:30 Oxycodone/ Acetaminophen (Endocet ()) 1 tab Q4H PRN PO PAIN LEVEL 8-10 Last administered on 06/07/18 09:08; Admin Dose 1 TAB; Start 06/05/18 at 19:00 Morphine Sulfate (morphine) 2 mg Q4H PRN IV SEVERE PAIN LEVEL 7-10; Start 06/05/18 at 19:00 Sodium Chloride 1,000 ml @ 80 mls/hr [id number] IV Last administered on 06/07/18 10:09; Admin Dose 80 MLS/HR; Start 06/06/18 at 08:00 VINCENT BALDERAS MD Jun 07, 2018 12:44
--- NOTE | 2018-06-07 12:45 | PDOCDIS ---
Discharge Instructions CONDITION [id number] Patient Condition: [id number] Good HOME CARE INSTRUCTIONS: [id number] Diet Instructions: [id number] Regular ACTIVITY: [id number] Activity Restrictions: [id number] Avoid heavy lifting [id number] Bathing Restrictions: [id number] Shower FOLLOW UP/APPOINTMENTS Follow-up Plan Follow-up with Dr. Balderas in 2 weeks VINCENT BALDERAS MD Jun 07, 2018 12:45
[2018-06-07 14:00] VITALS: BP 138/88; PULSE 68; RESP 18
[2018-06-07 19:42] VITALS: BP 135/83; PULSE 79; RESP 18
[2018-06-07] MEDS: ATORVASTATIN 40 MG TAB PO SCH (20:15)
[2018-06-08] VITALS (8 sets, daily range): BP systolic 134–176; BP diastolic 73–98; PULSE 68–79; RESP 16–79
[2018-06-08] MEDS: OXYCODONE/ACETAMINOPHEN (10/325) TAB PO PRN ×4 (04:04→20:22)
[2018-06-08] MEDS: AL HYDROX/MG HYDROX/SIMETH 30 ML CUP PO PRN ×3 (04:05→18:37)
[2018-06-08] MEDS: METHOCARBAMOL 500 MG TAB PO SCH ×3 (06:12→22:11)
--- NOTE | 2018-06-08 08:11 | CONS ---
Assessment/Plan Assessment/Plan Assessment/Plan (Daily) 1. Ileus resolving 2. BP elevated, meds added 4. Labs rev Consultation Date/Type/Reason Admit Date/Time Jun 03, 2018 at 05:41 Initial Consult Date Requesting Provider: VINCENT BALDERAS MD Date/Time of Note DATE: 06/08/18 TIME: 08:09 Detailed Summary Respiratory: No cough, No shortness of breath Cardiovascular: No chest pain Gastrointestinal: other (some flatus, less distended and no bm without n or v) Genitourinary: no complaints Exam/Review of Systems Exam Vitals Vital Signs Date Temp Pulse Resp B/P (MAP) Pulse Ox O2 O2 Flow FiO2 Time Delivery Rate 06/08/18 98.1 69 20 170/98 98 Room Air 07:52 (122) 06/05/18 3.0 15:35 Intake and Output 06/07/18 06/07/18 06/08/18 1414:59 22:59 06:59 IntakeIntake Total 920 ml 1110 ml 600 ml OutputOutput Total 1000 ml 550 ml 600 ml BalanceBalance -80 ml 560 ml 0 ml Neck: No jvd Respiratory: clear to auscultation Cardiovascular: regular rate and rhythm Gastrointestinal: soft, tender (lower abd (grey incisional)) Extremities: No edema Neurological: No focal weakness Results Result Diagram: 06/08/18 0436 06/08/18 0436 Results 24hrs Laboratory Tests Test 06/08/18 04:36 White Blood Count 7.6 Red Blood Count 3.84 L Hemoglobin 11.7 L Hematocrit 34.1 L Mean Corpuscular Volume 88.8 Mean Corpuscular Hemoglobin 30.5 Mean Corpuscular Hemoglobin Concent 34.3 Red Cell Distribution Width 12.6 Platelet Count 362 Mean Platelet Volume 9.4 Immature Granulocytes % 0.500 H Neutrophils % 61.1 Lymphocytes % 23.6 Monocytes % 11.5 H Eosinophils % 2.6 Basophils % 0.7 Nucleated Red Blood Cells % 0.0 Immature Granulocytes # 0.040 H Neutrophils # 4.7 Lymphocytes # 1.8 Monocytes # 0.9 Eosinophils # 0.2 Basophils # 0.1 Nucleated Red Blood Cells # 0.0 Sodium Level 135 Potassium Level 4.0 Chloride Level 100 Carbon Dioxide Level 25 Anion Gap 10 Blood Urea Nitrogen 11 Creatinine 0.63 Est Glomerular Filtrat Rate mL/min > 60 Glucose Level 147 Calcium Level 8.6 Phosphorus Level 2.8 Magnesium Level 2.0 Medications Medication Current Medications Prochlorperazine (Compazine) 10 mg Q4H PRN PO NAUSEA/VOMITING Last administered on 06/05/18 17:31; Admin Dose 10 MG; Start 06/03/18 at 15:00 Ondansetron HCl (Zofran Inj) 4 mg Q6H PRN IV NAUSEA/VOMITING Last administered on 06/05/18 01:51; Admin Dose 4 MG; Start 06/03/18 at 15:00 Al Hydrox/Mg Hydrox/Simethicone (Mag-Al Plus) 15 ml Q4H PRN PO .CONSTIPATION Last administered on 06/08/18 04:05; Admin Dose 15 ML; Start 06/03/18 at 15:00 Docusate Sodium (Colace) 100 mg BID PO Last administered on 06/07/18 20:15; Admin Dose 100 MG; Start 06/04/18 at 09:00 Acetaminophen (Tylenol Tab) 650 mg Q4H PRN PO TEMP GREATER THAN 101F OR LORENZ Last administered on 06/05/18 01:40; Admin Dose 650 MG; Start 06/03/18 at 15:00 IV Flush (NS 3 ml) 3 ml PER PROTOCOL IV ; Start 06/03/18 at 15:00 Naloxone HCl (Narcan) 0.2 mg Q2M PRN IV RR 8 BREATHS/MIN OR LESS; Start 06/03/18 at 15:00 Atorvastatin Calcium (Lipitor) 40 mg QHS PO Last administered on 06/07/18 20:15; Admin Dose 40 MG; Start 06/03/18 at 21:00 Budesonide (Entocort Ec) 3 mg DAILY PO Last administered on 06/07/18 09:07; Admin Dose 3 MG; Start 06/04/18 at 09:00 Gemfibrozil (Lopid) 600 mg BID PO Last administered on 06/07/18 20:14; Admin Dose 600 MG; Start 06/03/18 at 21:00 Pantoprazole (Protonix Tab) 40 mg DAILY PO Last administered on 06/07/18 09:08; Admin Dose 40 MG; Start 06/04/18 at 09:00 Benazepril HCl (Lotensin) 40 mg DAILY PO Last administered on 06/07/18 09:08; Admin Dose 40 MG; Start 06/04/18 at 09:00 Methocarbamol (Robaxin) 500 mg Q8 PO Last administered on 06/08/18at 06:12; Admin Dose 500 MG; Start 06/03/18 at 22:00 Acetaminophen/ Hydrocodone Bitart ([place] (/325)) 1 tab Q4H PRN PO MODERATE PAIN LEVEL 4-6 Last administered on 06/05/18at 14:24; Admin Dose 1 TAB; Start 06/05/18 at 10:30 Oxycodone/ Acetaminophen (Endocet (10/ 325)) 1 tab Q4H PRN PO PAIN LEVEL 8-10 Last administered on 06/08/18 04:04; Admin Dose 1 TAB; Start 06/05/18 at 19:00 Morphine Sulfate (morphine) 2 mg Q4H PRN IV SEVERE PAIN LEVEL 7-10; Start 06/05/18 at 19:00 FAINA CALI MD Jun 08, 2018 08:11
[2018-06-08] MEDS: DOCUSATE SODIUM 100 MG CAP PO SCH ×2 (08:26→20:23)
[2018-06-08] MEDS: GEMFIBROZIL 600 MG TAB PO SCH ×2 (08:26→20:30)
[2018-06-08] MEDS: BENAZEPRIL 20 MG TAB PO SCH (08:26)
[2018-06-08] MEDS: PANTOPRAZOLE (EC) 40 MG TAB PO SCH (08:26)
[2018-06-08] MEDS: BUDESONIDE (EC) 3 MG CAP PO SCH (08:27)
[2018-06-08] MEDS: METOPROLOL (XL) 25 MG TAB PO SCH ×2 (08:27→20:29)
[2018-06-08] MEDS: AMLODIPINE 5 MG TAB PO SCH ×2 (08:28→20:27)
[2018-06-08] MEDS ORDERED: NA PHOSPHATE/BIPHOS 133 ML ENEMA PR ONE (15:00)
[2018-06-08] MEDS: ATORVASTATIN 40 MG TAB PO SCH (20:24)
[2018-06-09] MEDS: OXYCODONE/ACETAMINOPHEN (10/325) TAB PO PRN ×3 (01:11→12:31)
[2018-06-09 02:00] VITALS: BP 137/68; PULSE 72; RESP 18
[2018-06-09 02:05] VITALS: BP 119/63; PULSE 72; RESP 18
[2018-06-09] MEDS: METHOCARBAMOL 500 MG TAB PO SCH ×2 (06:20→13:12)
--- NOTE | 2018-06-09 08:12 | CONS ---
Assessment/Plan Assessment/Plan Assessment/Plan (Daily) 1. Doing well post op lumbar back surgery. 2. Ileus has resolved 3. Can dc if ok with ortho and PT Consultation Date/Type/Reason Admit Date/Time Jun 03, 2018 at 05:41 Initial Consult Date Requesting Provider: VINCENT BALDERAS MD Date/Time of Note DATE: 06/09/18 TIME: 08:08 Detailed Summary Respiratory: No cough, No shortness of breath Cardiovascular: no complaints Gastrointestinal: other (had bm and less bloated wthout n or v) Genitourinary: no complaints Musculoskeletal: back pain (is less) Exam/Review of Systems Exam Vitals Vital Signs Date Temp Pulse Resp B/P (MAP) Pulse Ox O2 O2 Flow FiO2 Time Delivery Rate 06/09/18 97.5 72 18 119/63 99 02:05 (81) 06/08/18 Room Air 14:20 06/05/18 3.0 15:35 Intake and Output 06/08/18 06/08/18 06/09/18 1515:00 23:00 07:00 IntakeIntake Total 200 ml 380 ml 100 ml OutputOutput Total 900 ml 901 ml 700 ml BalanceBalance -700 ml -521 ml -600 ml Neck: No jvd Respiratory: clear to auscultation Cardiovascular: regular rate and rhythm Extremities: No edema Results Result Diagram: 06/08/18 0436 06/08/18 0436 Results 24hrs Laboratory Tests Test 06/08/18 10:10 Urine Color YELLOW Urine Clarity CLEAR Urine pH 7.0 Urine Specific [place] 1.013 Urine Ketones NEGATIVE Urine Nitrite NEGATIVE Urine Bilirubin NEGATIVE Urine Urobilinogen NEGATIVE Urine Leukocyte Esterase NEGATIVE Urine Microscopic RBC 6 H Urine Microscopic WBC 0 Urine Hemoglobin 1+ H Urine Glucose NEGATIVE Urine Total Protein NEGATIVE Medications Medication Current Medications Prochlorperazine (Compazine) 10 mg Q4H PRN PO NAUSEA/VOMITING Last administered on 06/05/18at 17:31; Admin Dose 10 MG; Start 06/03/18 at 15:00 Ondansetron HCl (Zofran Inj) 4 mg Q6H PRN IV NAUSEA/VOMITING Last administered on 06/05/18at 01:51; Admin Dose 4 MG; Start 06/03/18 at 15:00 Al Hydrox/Mg Hydrox/Simethicone (Mag-Al Plus) 15 ml Q4H PRN PO .CONSTIPATION Last administered on 06/08/18 18:37; Admin Dose 15 ML; Start 06/03/18 at 15:00 Docusate Sodium (Colace) 100 mg BID PO Last administered on 06/08/18 20:23; Admin Dose 100 MG; Start 06/04/18 at 09:00 Acetaminophen (Tylenol Tab) 650 mg Q4H PRN PO TEMP GREATER THAN 101F OR LORENZ Last administered on 06/05/18 01:40; Admin Dose 650 MG; Start 06/03/18 at 15:00 IV Flush (NS 3 ml) 3 ml PER PROTOCOL IV ; Start 06/03/18 at 15:00 Naloxone HCl (Narcan) 0.2 mg Q2M PRN IV RR 8 BREATHS/MIN OR LESS; Start 06/03/18 at 15:00 Atorvastatin Calcium (Lipitor) 40 mg QHS PO Last administered on 06/08/18 20:24; Admin Dose 40 MG; Start 06/03/18 at 21:00 Budesonide (Entocort Ec) 3 mg DAILY PO Last administered on 06/08/18 08:27; Admin Dose 3 MG; Start 06/04/18 at 09:00 Gemfibrozil (Lopid) 600 mg BID PO Last administered on 06/08/18 20:30; Admin Dose 600 MG; Start 06/03/18 at 21:00 Pantoprazole (Protonix Tab) 40 mg DAILY PO Last administered on 06/08/18 08:26; Admin Dose 40 MG; Start 06/04/18 at 09:00 Benazepril HCl (Lotensin) 40 mg DAILY PO Last administered on 06/08/18 08:26; Admin Dose 40 MG; Start 06/04/18 at 09:00 Methocarbamol (Robaxin) 500 mg Q8 PO Last administered on 06/09/18 06:20; Admin Dose 500 MG; Start 06/03/18 at 22:00 Acetaminophen/ Hydrocodone Bitart ([place] (10/325)) 1 tab Q4H PRN PO MODERATE PAIN LEVEL 4-6 Last administered on 06/05/18 14:24; Admin Dose 1 TAB; Start 06/05/18 at 10:30 Oxycodone/ Acetaminophen (Endocet (10/ 325)) 1 tab Q4H PRN PO PAIN LEVEL 8-10 Last administered on 06/09/18 07:38; Admin Dose 1 TAB; Start 06/05/18 at 19:00 Morphine Sulfate (morphine) 2 mg Q4H PRN IV SEVERE PAIN LEVEL 7-10; Start 06/05/18 at 19:00 Amlodipine Besylate (Norvasc) 5 mg BID PO Last administered on 06/08/18 20:27; Admin Dose 5 MG; Start 06/08/18 at 09:00 Metoprolol Succinate (Toprol Xl) 25 mg BID PO Last administered on 06/08/18 20:29; Admin Dose 25 MG; Start 06/08/18 at 09:00 Clonidine (Catapres) 0.1 mg TID PO Last administered on 06/08/18 09:37; Admin Dose 0.1 MG; Start 06/08/18 at 09:00 FAINA CALI MD Jun 09, 2018 08:11
[2018-06-09 08:29] VITALS: BP 157/89; PULSE 76; RESP 18
[2018-06-09] MEDS: GEMFIBROZIL 600 MG TAB PO SCH (09:16)
[2018-06-09] MEDS: DOCUSATE SODIUM 100 MG CAP PO SCH (09:16)
[2018-06-09] MEDS: BUDESONIDE (EC) 3 MG CAP PO SCH (09:16)
[2018-06-09] MEDS: PANTOPRAZOLE (EC) 40 MG TAB PO SCH (09:16)
[2018-06-09] MEDS: AMLODIPINE 5 MG TAB PO SCH (09:18)
[2018-06-09] MEDS: METOPROLOL (XL) 25 MG TAB PO SCH (09:18)
[2018-06-09] MEDS: BENAZEPRIL 20 MG TAB PO SCH (09:19)
== END 2018-06-09 14:23 | disposition home or self-care (01) | DRG 454 ==
LOC: REC 05:41 → MS1 17:01
PROVIDERS: ADMIT Orthopaedic Surgery; ATTEND Orthopaedic Surgery
PROC: 0SG00K1 Fusion of Lumbar Vertebral Joint with Nonautologous Tissue Substitute, Posterior Approach, Posterior Column, Open Approach (ICD-10-PCS; 2018-06-03)
PROC: 0SB20ZZ Excision of Lumbar Vertebral Disc, Open Approach (ICD-10-PCS; 2018-06-03)
PROC: 3E0U0GB Introduction of Recombinant Bone Morphogenetic Protein into Joints, Open Approach (ICD-10-PCS; 2018-06-03)
PROC: 4A11X4G Monitoring of Peripheral Nervous Electrical Activity, Intraoperative, External Approach (ICD-10-PCS; 2018-06-03)
PROC: 0SG00A0 Fusion of Lumbar Vertebral Joint with Interbody Fusion Device, Anterior Approach, Anterior Column, Open Approach (ICD-10-PCS; principal; 2018-06-03 08:00)
DX: M51.16 Intervertebral disc disorders with radiculopathy, lumbar region (principal); K50.90 Crohn's disease, unspecified, without complications; K56.7 Ileus, unspecified; M48.061 Spinal stenosis, lumbar region without neurogenic claudication; E66.9 Obesity, unspecified; E78.5 Hyperlipidemia, unspecified; I10 Essential (primary) hypertension; R10.13 Epigastric pain; K21.9 Gastro-esophageal reflux disease without esophagitis; E87.6 Hypokalemia; Z68.31 Body mass index [BMI] 31.0-31.9, adult
CPT/HCPCS: 72110; 80048; 80053; 80076; 81001; 83690; 83735; 84100; 85014; 85018; 85025; 86850; 86900; 86901; 86920; 97110; 97116; 97163; 97530; C1762; J0131; J0461; J0690; J1100; J1170; J1644; J2175; J2405; J2710; J2765; J3010; J3480; J7030; J7042; L0639; L8699